=== PATIENT | male | born 1990 | race African-American/Black ===

== ENCOUNTER 2022-06-14 19:10 | Inpatient (IN) | payer MEDICAID, OTHER ==
[2022-06-14] MEDS ORDERED: Fentanyl 100 MCG/2 ML VIAL SLOW IVP SCH (20:00)
[2022-06-14 20:12] VITALS: BMI 17.8
[2022-06-14] MEDS ORDERED: HYDROmorphone 0.5 MG/0.5 ML SYRINGE SLOW IVP SCH (20:30)
[2022-06-14] MEDS ORDERED: Acetaminophen 325 MG TAB PO PRN ×2 (20:32→20:47)
[2022-06-14] MEDS ORDERED: Guaifenesin DM 100-10/5 ML UDCUP PO PRN (20:32)
[2022-06-14] MEDS ORDERED: Calcium Carbonate 500 MG ChewTAB PO PRN (20:32)
[2022-06-14] MEDS ORDERED: oxyCODONE/Acetaminophen 5 mg/325 mg Tablet PO PRN (20:35)
[2022-06-14] MEDS ORDERED: diphenhydrAMINE 50 MG/ML VIAL IVP SCH (20:45)
[2022-06-14] MEDS: Rivaroxaban 15 MG TAB PO SCH (22:01)
[2022-06-14] MEDS: Famotidine 20 MG TAB PO SCH (22:01)
[2022-06-14] MEDS: HYDROmorphone 0.5 MG/0.5 ML SYRINGE SLOW IVP PRN (22:04)
[2022-06-14] MEDS: Lactated Ringer's 1,000 ML IV SCH (22:08)
[2022-06-15] MEDS: oxyCODONE 5 MG TAB PO PRN ×3 (00:26→23:56)
[2022-06-15] MEDS: HYDROmorphone 0.5 MG/0.5 ML SYRINGE SLOW IVP PRN ×6 (01:27→19:39)
[2022-06-15 04:19] LABS: #Basophils 0.1 10x3/uL (0.0-0.2); #Eosinphils 0.1 10x3/uL (0.0-0.5); #Monocytes 2.6 10x3/uL (0.0-1.1); #Neutrophils 13.5 10x3/uL (1.5-8.4); %Basophils 0.5 % (0.0-2.0); %Eosinophils 0.7 % (0.0-6.0); %Lymphocytes 12.3 % (18.0-47.0); Hemoglobin 10.4 g/dL (13.5-17.5); Mean Corpuscular HGB CONC 35.5 g/dL (32.0-36.0); Mean Corpuscular Hemoglobin 31.2 pg (27.0-33.0); Mean Platelet Volume 9.9 fl (7.4-10.4); Platelet Count 254 10x3/uL (150-450); RBC Distribution Width 16.6 % (11.5-14.5); Red Blood Cell (RBC) Count 3.33 10x6/uL (4.32-5.72); White Blood Cell (WBC) Count 18.8 10x3/uL (3.5-10.5)
[2022-06-15] MEDS: Lactated Ringer's 1,000 ML IV SCH ×3 (04:29→19:52)
[2022-06-15 04:37] LABS: ALT (SGPT) 11 U/L (8-55); AST (SGOT) 38 U/L (5-34); Albumin 3.9 g/dL (3.5-5.0); Alkaline Phosphatase 83 U/L (40-110); Anion Gap 14 mmol/L (10-20); BUN (Urea Nitrogen) 9 mg/dL (8.9-20.6); Bilirubin, Total 2.8 mg/dL (0.2-1.2); Calc. Creatinine Clearance 122 mL/min (70-130); Carbon Dioxide 20 mmol/L (22-29); Chloride 103 mmol/L (98-107); Estimated GFR 122; Globulin 3.5 g/dL (2.4-3.5); Glucose 87 mg/dL (70-105); Potassium 4.4 mmol/L (3.5-5.1); Protein, Total 7.4 g/dL (6.0-8.3); Sodium 133 mmol/L (136-145)
[2022-06-15 05:13] LABS: Amphetamine Not Detected (NotDetected); Barbiturates Screen Not Detected (NotDetected); Benzodiazepine Screen Detected (NotDetected); Cocaine Metabolite Screen Not Detected (NotDetected); Methadone Not Detected (NotDetected); Methamphetamine Detected (NotDetected); Opiate Screen Detected (NotDetected); Oxycodone Screen Detected (NotDetected); Phencyclidine (PCP) Not Detected (NotDetected); THC/Cannabinoid Screen Detected (NotDetected); Tricyclic Screen Not Detected (NotDetected)
[2022-06-15] MEDS: Multivitamin W/ Minerals 1 TAB PO SCH (08:00)
[2022-06-15] MEDS: Folic Acid 1 MG TAB PO SCH (08:00)
[2022-06-15] MEDS: Famotidine 20 MG TAB PO SCH ×2 (08:00→19:48)
[2022-06-15] MEDS: Rivaroxaban 15 MG TAB PO SCH ×2 (08:00→19:49)
[2022-06-15] MEDS ORDERED: Enoxaparin Sodium 40 MG/0.4 ML SYRINGE SC SCH (09:00)
[2022-06-16] MEDS ORDERED: HYDROmorphone 0.5 MG/0.5 ML SYRINGE SLOW IVP SCH ×3 (00:30→11:30)
[2022-06-16] MEDS: Ondansetron PF 4 MG/2 ML Vial IVP PRN (01:03)
[2022-06-16] MEDS: diphenhydrAMINE 25 MG CAP PO PRN ×3 (02:50→18:34)
[2022-06-16 04:22] LABS: #Basophils 0.1 10x3/uL (0.0-0.2); #Eosinphils 0.3 10x3/uL (0.0-0.5); #Monocytes 1.7 10x3/uL (0.0-1.1); #Neutrophils 7.7 10x3/uL (1.5-8.4); %Basophils 0.4 % (0.0-2.0); %Eosinophils 2.3 % (0.0-6.0); %Lymphocytes 26.3 % (18.0-47.0); %Monocytes 12.8 % (0.0-10.0); %Neutrophils 57.7 % (40.0-75.0); Hemoglobin 10.6 g/dL (13.5-17.5); Mean Corpuscular HGB CONC 36.6 g/dL (32.0-36.0); Mean Corpuscular Hemoglobin 31.9 pg (27.0-33.0); Mean Corpuscular Volume 87.3 fl (81.2-95.1); Mean Platelet Volume 9.9 fl (7.4-10.4); Platelet Count 272 10x3/uL (150-450); RBC Distribution Width 16.6 % (11.5-14.5); Red Blood Cell (RBC) Count 3.32 10x6/uL (4.32-5.72); White Blood Cell (WBC) Count 13.4 10x3/uL (3.5-10.5)
[2022-06-16] MEDS: Lactated Ringer's 1,000 ML IV SCH ×3 (05:19→22:48)
[2022-06-16] MEDS: oxyCODONE 5 MG TAB PO PRN ×3 (07:47→23:26)
[2022-06-16] MEDS: Rivaroxaban 15 MG TAB PO SCH ×2 (08:12→19:58)
[2022-06-16] MEDS: Folic Acid 1 MG TAB PO SCH (08:12)
[2022-06-16] MEDS: Multivitamin W/ Minerals 1 TAB PO SCH (08:12)
[2022-06-16] MEDS: Famotidine 20 MG TAB PO SCH ×2 (08:12→19:58)
[2022-06-16] MEDS: HYDROmorphone 2 MG TAB PO PRN ×3 (10:25→19:57)
[2022-06-17] MEDS: HYDROmorphone 2 MG TAB PO PRN ×2 (01:44→08:32)
[2022-06-17] MEDS: diphenhydrAMINE 25 MG CAP PO PRN (01:44)
[2022-06-17] MEDS: oxyCODONE 5 MG TAB PO PRN ×2 (04:56→11:10)
[2022-06-17 07:42] LABS: #Basophils 0.1 10x3/uL (0.0-0.2); #Eosinphils 0.3 10x3/uL (0.0-0.5); #Neutrophils 4.9 10x3/uL (1.5-8.4); %Basophils 0.5 % (0.0-2.0); %Eosinophils 3.5 % (0.0-6.0); %Lymphocytes 34.6 % (18.0-47.0); %Monocytes 10.7 % (0.0-10.0); %Neutrophils 50.3 % (40.0-75.0); Hemoglobin 9.2 g/dL (13.5-17.5); Mean Corpuscular HGB CONC 36.2 g/dL (32.0-36.0); Mean Corpuscular Hemoglobin 31.7 pg (27.0-33.0); Mean Corpuscular Volume 87.6 fl (81.2-95.1); Mean Platelet Volume 9.6 fl (7.4-10.4); Platelet Count 231 10x3/uL (150-450); RBC Distribution Width 16.6 % (11.5-14.5); White Blood Cell (WBC) Count 9.7 10x3/uL (3.5-10.5)
[2022-06-17] MEDS: Folic Acid 1 MG TAB PO SCH (08:31)
[2022-06-17] MEDS: Famotidine 20 MG TAB PO SCH ×2 (08:32→23:11)
[2022-06-17] MEDS: Multivitamin W/ Minerals 1 TAB PO SCH (08:33)
[2022-06-17] MEDS: Rivaroxaban 15 MG TAB PO SCH ×2 (08:33→23:11)
[2022-06-17] MEDS ORDERED: HYDROmorphone 0.5 MG/0.5 ML SYRINGE SLOW IVP SCH ×2 (11:15→13:00)
[2022-06-17] MEDS: Ondansetron PF 4 MG/2 ML Vial IVP PRN (13:29)
[2022-06-17] MEDS ORDERED: HYDROmorphone 10 mg/100 ml CADD IVPB PRN (14:30)
[2022-06-17] MEDS ORDERED: diphenhydrAMINE 25 MG CAP PO PRN (14:30)
[2022-06-17] MEDS ORDERED: Ondansetron PF 4 MG/2 ML Vial IVP PRN (14:30)
[2022-06-17] MEDS ORDERED: Naloxone HCl 0.4 mg/ml Vial IV PRN (14:30)
[2022-06-17] MEDS ORDERED: Communication Order-Pharmacy FS SCH (14:30)
[2022-06-17] MEDS ORDERED: Promethazine HCl 25 MG/ML VIAL IM PRN (14:30)
[2022-06-17] MEDS ORDERED: diphenhydrAMINE 50 MG/ML VIAL IM PRN (14:30)
[2022-06-17] MEDS: HYDROmorphone/PF 10 MG in Sodium Chloride 0.9% 49 ML IVPB PRN (17:32)
[2022-06-18] MEDS: diphenhydrAMINE 25 MG CAP PO PRN ×2 (00:28→20:41)
[2022-06-18 05:42] LABS: #Basophils 0.1 10x3/uL (0.0-0.2); #Eosinphils 0.4 10x3/uL (0.0-0.5); #Neutrophils 5.3 10x3/uL (1.5-8.4); %Basophils 0.6 % (0.0-2.0); %Lymphocytes 36.5 % (18.0-47.0); %Monocytes 9.5 % (0.0-10.0); %Neutrophils 48.9 % (40.0-75.0); Hemoglobin 9.6 g/dL (13.5-17.5); Mean Corpuscular HGB CONC 35.3 g/dL (32.0-36.0); Mean Corpuscular Hemoglobin 31.2 pg (27.0-33.0); Mean Corpuscular Volume 88.3 fl (81.2-95.1); Mean Platelet Volume 10.6 fl (7.4-10.4); Platelet Count 260 10x3/uL (150-450); RBC Distribution Width 16.9 % (11.5-14.5); Red Blood Cell (RBC) Count 3.08 10x6/uL (4.32-5.72); White Blood Cell (WBC) Count 10.8 10x3/uL (3.5-10.5)
[2022-06-18] MEDS: Famotidine 20 MG TAB PO SCH ×2 (08:57→20:36)
[2022-06-18] MEDS: Multivitamin W/ Minerals 1 TAB PO SCH (08:57)
[2022-06-18] MEDS: Rivaroxaban 15 MG TAB PO SCH ×2 (08:57→20:36)
[2022-06-18] MEDS: Folic Acid 1 MG TAB PO SCH (08:57)
[2022-06-18] MEDS: HYDROmorphone/PF 10 MG in Sodium Chloride 0.9% 49 ML IVPB PRN (17:35)
[2022-06-18] MEDS ORDERED: Diazepam 5 MG TAB PO SCH (23:45)
[2022-06-19 04:37] LABS: Hemoglobin 10.1 g/dL (13.5-17.5); Mean Corpuscular HGB CONC 36.7 g/dL (32.0-36.0); Platelet Count 242 10x3/uL (150-450); RBC Distribution Width 17.1 % (11.5-14.5); Red Blood Cell (RBC) Count 3.16 10x6/uL (4.32-5.72); White Blood Cell (WBC) Count 11.3 10x3/uL (3.5-10.5)
[2022-06-19 05:22] LABS: MDiff Complete? YES
[2022-06-19 05:54] LABS: Eosinophils 10 % (0-10); Lymphocytes 41 % (21-51); Monocytes 3 % (0-10); Neutrophil 46 % (42-75); Nucleated RBC 1 % (0)
[2022-06-19 05:57] LABS: Platelet Morphology Comment Appears Adequate; Sickle Cells SLIGHT = 1-5 cells (100X) (None Seen); Target Cells SLIGHT = 2-5 cells (100X) (0-1/hpf)
[2022-06-19] MEDS: Famotidine 20 MG TAB PO SCH ×2 (08:34→21:31)
[2022-06-19] MEDS: Rivaroxaban 15 MG TAB PO SCH ×2 (08:34→21:32)
[2022-06-19] MEDS: Multivitamin W/ Minerals 1 TAB PO SCH (08:34)
[2022-06-19] MEDS: Folic Acid 1 MG TAB PO SCH (08:34)
[2022-06-19] MEDS: HYDROmorphone/PF 10 MG in Sodium Chloride 0.9% 49 ML IVPB PRN (08:55)
[2022-06-19] MEDS: Sodium Chloride 0.9% 1,000 ML IV SCH ×2 (11:53→18:19)
[2022-06-19] MEDS: Diazepam 5 MG TAB PO SCH (23:37)
[2022-06-20] MEDS: Sodium Chloride 0.9% 1,000 ML IV SCH ×4 (00:30→22:40)
[2022-06-20] MEDS: HYDROmorphone/PF 10 MG in Sodium Chloride 0.9% 49 ML IVPB PRN ×2 (02:35→21:58)
[2022-06-20] MEDS: diphenhydrAMINE 50 MG/ML VIAL IVP PRN (04:44)
[2022-06-20 05:55] LABS: Hemoglobin 8.9 g/dL (13.5-17.5); Mean Corpuscular Hemoglobin 31.3 pg (27.0-33.0); Mean Platelet Volume 9.5 fl (7.4-10.4); Platelet Count 230 10x3/uL (150-450); RBC Distribution Width 17.8 % (11.5-14.5); Red Blood Cell (RBC) Count 2.84 10x6/uL (4.32-5.72); White Blood Cell (WBC) Count 11.3 10x3/uL (3.5-10.5)
[2022-06-20 06:05] LABS: Anion Gap 14 mmol/L (10-20); BUN (Urea Nitrogen) 12 mg/dL (8.9-20.6); Calc. Creatinine Clearance 90 mL/min (70-130); Calcium 9.3 mg/dL (7.8-10.44); Carbon Dioxide 27 mmol/L (22-29); Chloride 106 mmol/L (98-107); Estimated GFR 101; Glucose 103 mg/dL (70-105); Magnesium 1.7 mg/dL (1.6-2.6); Potassium 4.9 mmol/L (3.5-5.1); Sodium 142 mmol/L (136-145)
[2022-06-20 06:34] LABS: MDiff Complete? YES
[2022-06-20 06:43] LABS: Band 1 % (5-11); Eosinophils 3 % (0-10); Lymphocytes 47 % (21-51); Monocytes 5 % (0-10); Neutrophil 44 % (42-75)
[2022-06-20 06:48] LABS: Sickle Cells MODERATE= 6-15 cells (100X) (None Seen); Target Cells SLIGHT = 2-5 cells (100X) (0-1/hpf)
[2022-06-20 06:50] LABS: Platelet Morphology Comment Appears Adequate
[2022-06-20] MEDS: Rivaroxaban 15 MG TAB PO SCH ×2 (08:38→21:17)
[2022-06-20] MEDS: Multivitamin W/ Minerals 1 TAB PO SCH (08:39)
[2022-06-20] MEDS: Folic Acid 1 MG TAB PO SCH (08:39)
[2022-06-20] MEDS: Famotidine 20 MG TAB PO SCH ×2 (08:39→21:17)
[2022-06-20] MEDS: Ondansetron PF 4 MG/2 ML Vial IVP PRN (13:59)
[2022-06-20] MEDS ORDERED: Bisacodyl 5 MG TAB PO PRN (14:53)
[2022-06-20] MEDS ORDERED: Polyethylene Glycol 3350 17 GM Packet PO PRN (14:53)
[2022-06-20 16:13] LABS: Hemoglobin S Reflexed % (0.0)
[2022-06-20] MEDS ORDERED: Metoclopramide 10 MG/10 ML UDCUP PO SCH (17:00)
[2022-06-20] MEDS: Diazepam 5 MG TAB PO SCH (23:46)
[2022-06-21 04:36] LABS: ALT (SGPT) 14 U/L (8-55); AST (SGOT) 45 U/L (5-34); Albumin 3.8 g/dL (3.5-5.0); Alkaline Phosphatase 70 U/L (40-110); Anion Gap 11 mmol/L (10-20); BUN (Urea Nitrogen) 11 mg/dL (8.9-20.6); Bilirubin, Total 2.2 mg/dL (0.2-1.2); Calc. Creatinine Clearance 102 mL/min (70-130); Carbon Dioxide 26 mmol/L (22-29); Chloride 105 mmol/L (98-107); Estimated GFR 116; Globulin 3.5 g/dL (2.4-3.5); Glucose 95 mg/dL (70-105); Potassium 4.5 mmol/L (3.5-5.1); Protein, Total 7.3 g/dL (6.0-8.3); Sodium 137 mmol/L (136-145)
[2022-06-21] MEDS: Sodium Chloride 0.9% 1,000 ML IV SCH ×2 (05:00→12:34)
[2022-06-21 05:03] LABS: #Basophils 0.1 10x3/uL (0.0-0.2); #Eosinphils 0.5 10x3/uL (0.0-0.5); #Monocytes 1.1 10x3/uL (0.0-1.1); #Neutrophils 7.3 10x3/uL (1.5-8.4); %Basophils 0.5 % (0.0-2.0); %Eosinophils 3.5 % (0.0-6.0); %Lymphocytes 29.7 % (18.0-47.0); %Monocytes 8.4 % (0.0-10.0); %Neutrophils 56.5 % (40.0-75.0); Hemoglobin 7.7 g/dL (13.5-17.5); Mean Corpuscular HGB CONC 36.8 g/dL (32.0-36.0); Mean Corpuscular Hemoglobin 31.4 pg (27.0-33.0); Mean Corpuscular Volume 85.3 fl (81.2-95.1); Mean Platelet Volume 10.1 fl (7.4-10.4); Platelet Count 207 10x3/uL (150-450); RBC Distribution Width 18.5 % (11.5-14.5); Red Blood Cell (RBC) Count 2.45 10x6/uL (4.32-5.72); White Blood Cell (WBC) Count 12.9 10x3/uL (3.5-10.5)
[2022-06-21 05:08] LABS: Platelet Morphology Comment Appears Adequate; Polychromasia SLIGHT = 2-3 cells (100X) (0-2/hpf); Sickle Cells MODERATE= 6-15 cells (100X) (None Seen); Target Cells SLIGHT = 2-5 cells (100X) (0-1/hpf)
[2022-06-21] MEDS: diphenhydrAMINE 50 MG/ML VIAL IVP PRN (06:47)
[2022-06-21] MEDS: Rivaroxaban 15 MG TAB PO SCH ×2 (08:11→22:09)
[2022-06-21] MEDS: Folic Acid 1 MG TAB PO SCH (08:11)
[2022-06-21] MEDS: Famotidine 20 MG TAB PO SCH ×2 (08:11→22:09)
[2022-06-21] MEDS: Multivitamin W/ Minerals 1 TAB PO SCH (08:11)
[2022-06-21] MEDS: HYDROmorphone/PF 10 MG in Sodium Chloride 0.9% 49 ML IVPB PRN (19:42)
[2022-06-21] MEDS: Diazepam 5 MG TAB PO SCH (22:09)
[2022-06-22 04:35] LABS: ALT (SGPT) 16 U/L (8-55); AST (SGOT) 55 U/L (5-34); Albumin 3.8 g/dL (3.5-5.0); Alkaline Phosphatase 77 U/L (40-110); Anion Gap 14 mmol/L (10-20); BUN (Urea Nitrogen) 10 mg/dL (8.9-20.6); Bilirubin, Total 3.4 mg/dL (0.2-1.2); Calc. Creatinine Clearance 109 mL/min (70-130); Carbon Dioxide 21 mmol/L (22-29); Chloride 107 mmol/L (98-107); Estimated GFR 118; Globulin 3.3 g/dL (2.4-3.5); Glucose 93 mg/dL (70-105); Potassium 4.5 mmol/L (3.5-5.1); Protein, Total 7.1 g/dL (6.0-8.3); Sodium 137 mmol/L (136-145)
[2022-06-22 04:50] LABS: #Basophils 0.1 10x3/uL (0.0-0.2); #Eosinphils 0.4 10x3/uL (0.0-0.5); #Monocytes 1.5 10x3/uL (0.0-1.1); #Neutrophils 7.4 10x3/uL (1.5-8.4); %Basophils 0.6 % (0.0-2.0); %Eosinophils 2.8 % (0.0-6.0); %Lymphocytes 27.6 % (18.0-47.0); %Monocytes 11.6 % (0.0-10.0); %Neutrophils 56.9 % (40.0-75.0); Hemoglobin 7.3 g/dL (13.5-17.5); Mean Corpuscular HGB CONC 36.3 g/dL (32.0-36.0); Mean Corpuscular Hemoglobin 30.8 pg (27.0-33.0); Mean Corpuscular Volume 84.8 fl (81.2-95.1); Platelet Count 198 10x3/uL (150-450); RBC Distribution Width 18.7 % (11.5-14.5); Red Blood Cell (RBC) Count 2.37 10x6/uL (4.32-5.72); White Blood Cell (WBC) Count 13.1 10x3/uL (3.5-10.5)
[2022-06-22] MEDS: Rivaroxaban 15 MG TAB PO SCH ×2 (08:51→21:33)
[2022-06-22] MEDS: Folic Acid 1 MG TAB PO SCH (08:51)
[2022-06-22] MEDS: Multivitamin W/ Minerals 1 TAB PO SCH (08:51)
[2022-06-22] MEDS: Famotidine 20 MG TAB PO SCH ×2 (08:51→21:32)
[2022-06-22] MEDS: HYDROmorphone/PF 10 MG in Sodium Chloride 0.9% 49 ML IVPB PRN (17:16)
[2022-06-22] MEDS ORDERED: cefTRIAXone\\ROCEPHIN 1 GM in Sodium Chloride 0.9% 100 ML IVPB SCH (18:00)
[2022-06-22 20:53] LABS: HIV (1/2) Antibody/Antigen Non-Reactive (NonReactive); HIV 1/2 INDEX 0.07 S/CO (<1.00)
[2022-06-22 20:59] LABS: Phosphorus 3.3 mg/dL (2.3-4.7)
[2022-06-22 21:01] LABS: CRP (Inflammatory) 3.78 mg/dL (= or < 0.5); Magnesium 1.6 mg/dL (1.6-2.6)
[2022-06-22] MEDS: Diazepam 5 MG TAB PO SCH (21:32)
[2022-06-23 06:28] LABS: #Basophils 0.1 10x3/uL (0.0-0.2); #Eosinphils 0.6 10x3/uL (0.0-0.5); #Monocytes 2.2 10x3/uL (0.0-1.1); #Neutrophils 8.1 10x3/uL (1.5-8.4); %Basophils 0.6 % (0.0-2.0); %Eosinophils 4.1 % (0.0-6.0); %Lymphocytes 25.7 % (18.0-47.0); %Monocytes 14.8 % (0.0-10.0); %Neutrophils 54.1 % (40.0-75.0); Hemoglobin 7.7 g/dL (13.5-17.5); Mean Corpuscular HGB CONC 36.8 g/dL (32.0-36.0); Mean Corpuscular Volume 84.3 fl (81.2-95.1); Mean Platelet Volume 10.1 fl (7.4-10.4); Platelet Count 199 10x3/uL (150-450); RBC Distribution Width 19.2 % (11.5-14.5); Red Blood Cell (RBC) Count 2.48 10x6/uL (4.32-5.72)
[2022-06-23 06:36] LABS: ALT (SGPT) 18 U/L (8-55); Albumin 3.6 g/dL (3.5-5.0); Alkaline Phosphatase 72 U/L (40-110); Anion Gap 18 mmol/L (10-20); BUN (Urea Nitrogen) 10 mg/dL (8.9-20.6); Bilirubin, Total 3.3 mg/dL (0.2-1.2); Calc. Creatinine Clearance 109 mL/min (70-130); Calcium 8.8 mg/dL (7.8-10.44); Carbon Dioxide 18 mmol/L (22-29); Chloride 109 mmol/L (98-107); Estimated GFR 118; Globulin 3.5 g/dL (2.4-3.5); Glucose 100 mg/dL (70-105); Potassium 4.8 mmol/L (3.5-5.1); Protein, Total 7.1 g/dL (6.0-8.3); Sodium 140 mmol/L (136-145)
[2022-06-23 06:38] LABS: AST (SGOT) 55 U/L (5-34)
[2022-06-23] MEDS ORDERED: Carvedilol 3.125 MG TAB PO SCH (08:00)
[2022-06-23] MEDS: Ondansetron PF 4 MG/2 ML Vial IVP PRN (08:34)
[2022-06-23] MEDS ORDERED: Piperacillin/Tazobactam 3.375 GM in Sodium Chloride 0.9% 100 ML IVPB SCH ×3 (09:00→13:00)
[2022-06-23] MEDS: Multivitamin W/ Minerals 1 TAB PO SCH (09:52)
[2022-06-23] MEDS: Famotidine 20 MG TAB PO SCH ×2 (09:52→21:04)
[2022-06-23] MEDS: Rivaroxaban 15 MG TAB PO SCH ×2 (09:52→21:04)
[2022-06-23] MEDS: Folic Acid 1 MG TAB PO SCH (09:52)
[2022-06-23] MEDS ORDERED: Iopamidol 300 61% 100 ML VIAL FS ONE (09:54)
[2022-06-23] MEDS: Promethazine HCl 12.5 MG in Sodium Chloride 0.9% 50 ML IVPB PRN (11:47)
[2022-06-23] MEDS ORDERED: EPINEPHrine 1 MG/ML AMP IM PRN (13:01)
[2022-06-23 14:12] LABS: INR-International Normal Ratio 2.2; PTT 47.3 sec (22.0-33.0); Prothrombin Time 22.4 sec (9.5-12.1)
[2022-06-23] MEDS: Cefepime 2 GM in Sodium Chloride 0.9% 100 ML IVPB SCH ×2 (14:39→22:46)
[2022-06-23] MEDS: HYDROmorphone/PF 10 MG in Sodium Chloride 0.9% 49 ML IVPB PRN (18:41)
[2022-06-23] MEDS: Carvedilol 6.25 MG TAB PO SCH (19:32)
[2022-06-23] MEDS: Senokot S 8.6-50 MG TAB PO PRN (22:47)
[2022-06-23] MEDS: Diazepam 5 MG TAB PO SCH (23:43)
[2022-06-24 04:19] LABS: ALT (SGPT) 14 U/L (8-55); AST (SGOT) 40 U/L (5-34); Alkaline Phosphatase 84 U/L (40-110); Anion Gap 15 mmol/L (10-20); BUN (Urea Nitrogen) 9 mg/dL (8.9-20.6); Bilirubin, Total 3.7 mg/dL (0.2-1.2); Calc. Creatinine Clearance 96 mL/min (70-130); Calcium 9.1 mg/dL (7.8-10.44); Carbon Dioxide 23 mmol/L (22-29); Chloride 105 mmol/L (98-107); Estimated GFR 109; Globulin 3.2 g/dL (2.4-3.5); Glucose 112 mg/dL (70-105); Potassium 4.2 mmol/L (3.5-5.1); Protein, Total 7.2 g/dL (6.0-8.3); Sodium 139 mmol/L (136-145)
[2022-06-24 04:21] LABS: #Basophils 0.1 10x3/uL (0.0-0.2); #Eosinphils 0.7 10x3/uL (0.0-0.5); #Monocytes 1.8 10x3/uL (0.0-1.1); #Neutrophils 7.6 10x3/uL (1.5-8.4); %Basophils 0.4 % (0.0-2.0); %Eosinophils 5.2 % (0.0-6.0); %Lymphocytes 23.2 % (18.0-47.0); %Monocytes 13.3 % (0.0-10.0); %Neutrophils 57.3 % (40.0-75.0); Hemoglobin 8.3 g/dL (13.5-17.5); Mean Corpuscular HGB CONC 36.9 g/dL (32.0-36.0); Mean Corpuscular Hemoglobin 30.9 pg (27.0-33.0); Mean Corpuscular Volume 83.6 fl (81.2-95.1); Mean Platelet Volume 9.8 fl (7.4-10.4); Platelet Count 227 10x3/uL (150-450); RBC Distribution Width 19.4 % (11.5-14.5); Red Blood Cell (RBC) Count 2.69 10x6/uL (4.32-5.72); White Blood Cell (WBC) Count 13.3 10x3/uL (3.5-10.5)
[2022-06-24] MEDS: Cefepime 2 GM in Sodium Chloride 0.9% 100 ML IVPB SCH ×3 (05:37→21:09)
[2022-06-24] MEDS: Folic Acid 1 MG TAB PO SCH (10:09)
[2022-06-24] MEDS: Rivaroxaban 15 MG TAB PO SCH ×2 (10:09→21:08)
[2022-06-24] MEDS: Famotidine 20 MG TAB PO SCH ×2 (10:09→21:08)
[2022-06-24] MEDS: Multivitamin W/ Minerals 1 TAB PO SCH (10:09)
[2022-06-24] MEDS: Carvedilol 6.25 MG TAB PO SCH (10:10)
[2022-06-24 14:27] LABS: Bilirubin Neg (Negative); Blood, Urine 10 (Negative); Glucose, Urine (Dipstick) Normal (Negative); Ketone, Urine Negative (Negative); Leukocyte Negative (Negative); Nitrite Negative (Negative); Protein, Urine (Dipstick) Negative (Neg-Trace)
[2022-06-24 14:50] LABS: Clarity Clear (Clear)
[2022-06-24 14:52] LABS: Bacteria/HPF 1+ HPF (None Seen); Squamous Epithelial 0-3 HPF (0-3); WBC/HPF 0-3 HPF (0-3)
[2022-06-24 14:54] LABS: Mucous/LPF 1+ LPF (<2+)
[2022-06-24] MEDS: HYDROmorphone/PF 10 MG in Sodium Chloride 0.9% 49 ML IVPB PRN (16:44)
[2022-06-24] MEDS: Carvedilol 12.5 MG TAB PO SCH (16:49)
[2022-06-24] MEDS: Diazepam 5 MG TAB PO SCH (23:20)
[2022-06-25] MEDS: Promethazine HCl 12.5 MG in Sodium Chloride 0.9% 50 ML IVPB PRN ×3 (00:02→21:40)
[2022-06-25] MEDS: Cefepime 2 GM in Sodium Chloride 0.9% 100 ML IVPB SCH ×3 (05:40→23:58)
[2022-06-25 05:53] LABS: ALT (SGPT) 12 U/L (8-55); Albumin 3.1 g/dL (3.5-5.0); Alkaline Phosphatase 71 U/L (40-110); Anion Gap 13 mmol/L (10-20); BUN (Urea Nitrogen) 7 mg/dL (8.9-20.6); Bilirubin, Total 2.9 mg/dL (0.2-1.2); Calc. Creatinine Clearance 117 mL/min (70-130); Calcium 8.7 mg/dL (7.8-10.44); Carbon Dioxide 19 mmol/L (22-29); Chloride 111 mmol/L (98-107); Estimated GFR 120; Globulin 3.3 g/dL (2.4-3.5); Glucose 96 mg/dL (70-105); Protein, Total 6.4 g/dL (6.0-8.3); Sodium 139 mmol/L (136-145)
[2022-06-25 05:54] LABS: AST (SGOT) 42 U/L (5-34)
[2022-06-25 09:22] LABS: #Eosinphils 0.8 10x3/uL (0.0-0.5); #Monocytes 1.6 10x3/uL (0.0-1.1); #Neutrophils 7.4 10x3/uL (1.5-8.4); %Basophils 0.3 % (0.0-2.0); %Eosinophils 6.4 % (0.0-6.0); %Lymphocytes 19.5 % (18.0-47.0); %Monocytes 13.2 % (0.0-10.0); Hemoglobin 7.6 g/dL (13.5-17.5); Mean Corpuscular HGB CONC 37.1 g/dL (32.0-36.0); Mean Corpuscular Hemoglobin 31.4 pg (27.0-33.0); Mean Corpuscular Volume 84.7 fl (81.2-95.1); Mean Platelet Volume 10.2 fl (7.4-10.4); Platelet Count 218 10x3/uL (150-450); RBC Distribution Width 21.2 % (11.5-14.5); Red Blood Cell (RBC) Count 2.42 10x6/uL (4.32-5.72); White Blood Cell (WBC) Count 12.4 10x3/uL (3.5-10.5)
[2022-06-25] MEDS: Multivitamin W/ Minerals 1 TAB PO SCH (09:28)
[2022-06-25] MEDS: Rivaroxaban 15 MG TAB PO SCH ×2 (09:28→21:44)
[2022-06-25] MEDS: Carvedilol 12.5 MG TAB PO SCH (09:28)
[2022-06-25] MEDS: Famotidine 20 MG TAB PO SCH ×2 (09:28→21:44)
[2022-06-25] MEDS: Folic Acid 1 MG TAB PO SCH (09:28)
[2022-06-25] MEDS ORDERED: Carvedilol 12.5 MG TAB PO SCH (10:00)
[2022-06-25] MEDS: Senokot S 8.6-50 MG TAB PO PRN (11:38)
[2022-06-25] MEDS: Lactated Ringer's 1,000 ML IV SCH (13:18)
[2022-06-25] MEDS: Carvedilol 25 MG TAB PO SCH (17:54)
[2022-06-26] MEDS: Diazepam 5 MG TAB PO SCH ×2 (00:03→23:14)
[2022-06-26] MEDS: HYDROmorphone/PF 10 MG in Sodium Chloride 0.9% 49 ML IVPB PRN (00:41)
[2022-06-26] MEDS: Lactated Ringer's 1,000 ML IV SCH (01:00)
[2022-06-26] MEDS: Promethazine HCl 12.5 MG in Sodium Chloride 0.9% 50 ML IVPB PRN ×4 (03:56→21:42)
[2022-06-26 05:41] LABS: ALT (SGPT) 15 U/L (8-55); AST (SGOT) 36 U/L (5-34); Albumin 3.5 g/dL (3.5-5.0); Alkaline Phosphatase 90 U/L (40-110); Anion Gap 16 mmol/L (10-20); BUN (Urea Nitrogen) 8 mg/dL (8.9-20.6); Bilirubin, Total 2.3 mg/dL (0.2-1.2); Calc. Creatinine Clearance 114 mL/min (70-130); Calcium 9.1 mg/dL (7.8-10.44); Carbon Dioxide 21 mmol/L (22-29); Chloride 111 mmol/L (98-107); Estimated GFR 120; Globulin 3.4 g/dL (2.4-3.5); Glucose 110 mg/dL (70-105); Potassium 4.5 mmol/L (3.5-5.1); Protein, Total 6.9 g/dL (6.0-8.3); Sodium 143 mmol/L (136-145)
[2022-06-26] MEDS: Cefepime 2 GM in Sodium Chloride 0.9% 100 ML IVPB SCH ×3 (06:00→21:34)
[2022-06-26 07:34] LABS: Hemoglobin 7.6 g/dL (13.5-17.5); Mean Corpuscular HGB CONC 38.4 g/dL (32.0-36.0); Mean Corpuscular Hemoglobin 31.5 pg (27.0-33.0); Mean Corpuscular Volume 82.2 fl (81.2-95.1); Mean Platelet Volume 10.4 fl (7.4-10.4); Platelet Count 264 10x3/uL (150-450); Red Blood Cell (RBC) Count 2.41 10x6/uL (4.32-5.72); White Blood Cell (WBC) Count 12.4 10x3/uL (3.5-10.5)
[2022-06-26 07:35] LABS: #Basophils 0.1 10x3/uL (0.0-0.2); #Eosinphils 0.8 10x3/uL (0.0-0.5); #Monocytes 1.4 10x3/uL (0.0-1.1); %Basophils 0.7 % (0.0-2.0); %Eosinophils 6.8 % (0.0-6.0); %Lymphocytes 29.7 % (18.0-47.0); %Monocytes 11.5 % (0.0-10.0); %Neutrophils 48.7 % (40.0-75.0)
[2022-06-26 08:18] LABS: Anisocytosis MODERATE=16-30 cells (100X) (0-5/hpf); Macrocytosis SLIGHT = 6-15 cells (100X) (0-5/hpf); Microcytosis SLIGHT = 6-15 cells (100X) (0-5/hpf); Poikilocytosis MODERATE=16-30 cells (100X) (0-5/hpf)
[2022-06-26 08:19] LABS: Schistocytes SLIGHT = 2-5 cells (100X) (0-1/hpf); Sickle Cells SLIGHT = 1-5 cells (100X) (None Seen); Target Cells SLIGHT = 2-5 cells (100X) (0-1/hpf)
[2022-06-26 08:20] LABS: Polychromasia SLIGHT = 2-3 cells (100X) (0-2/hpf)
[2022-06-26 08:21] LABS: Platelet Morphology Comment Appears Adequate
[2022-06-26] MEDS: Ivabradine 5 MG TAB PO SCH ×2 (09:54→20:26)
[2022-06-26] MEDS: Folic Acid 1 MG TAB PO SCH (09:54)
[2022-06-26] MEDS: Multivitamin W/ Minerals 1 TAB PO SCH (09:54)
[2022-06-26] MEDS: Famotidine 20 MG TAB PO SCH ×2 (09:55→20:26)
[2022-06-26] MEDS: Carvedilol 25 MG TAB PO SCH ×2 (09:55→17:37)
[2022-06-26] MEDS: Rivaroxaban 15 MG TAB PO SCH ×2 (09:55→20:26)
[2022-06-26 11:08] LABS: Free T4 (Free Thyroxine) 0.81 ng/dL (0.70-1.48)
[2022-06-27] MEDS: Promethazine HCl 12.5 MG in Sodium Chloride 0.9% 50 ML IVPB PRN ×3 (04:24→16:49)
[2022-06-27 04:28] LABS: ALT (SGPT) 16 U/L (8-55); AST (SGOT) 41 U/L (5-34); Albumin 3.4 g/dL (3.5-5.0); Alkaline Phosphatase 81 U/L (40-110); Anion Gap 14 mmol/L (10-20); BUN (Urea Nitrogen) 9 mg/dL (8.9-20.6); Bilirubin, Total 2.5 mg/dL (0.2-1.2); Calc. Creatinine Clearance 102 mL/min (70-130); Calcium 9.1 mg/dL (7.8-10.44); Carbon Dioxide 21 mmol/L (22-29); Chloride 110 mmol/L (98-107); Estimated GFR 116; Globulin 3.4 g/dL (2.4-3.5); Glucose 103 mg/dL (70-105); Potassium 4.3 mmol/L (3.5-5.1); Protein, Total 6.8 g/dL (6.0-8.3); Sodium 141 mmol/L (136-145)
[2022-06-27 04:42] LABS: #Basophils 0.1 10x3/uL (0.0-0.2); #Eosinphils 0.8 10x3/uL (0.0-0.5); #Monocytes 1.8 10x3/uL (0.0-1.1); #Neutrophils 7.8 10x3/uL (1.5-8.4); %Basophils 0.4 % (0.0-2.0); %Eosinophils 5.7 % (0.0-6.0); %Lymphocytes 22.4 % (18.0-47.0); %Monocytes 13.2 % (0.0-10.0); %Neutrophils 57.9 % (40.0-75.0); Hemoglobin 8.4 g/dL (13.5-17.5); Mean Corpuscular HGB CONC 36.2 g/dL (32.0-36.0); Mean Corpuscular Volume 85.6 fl (81.2-95.1); Mean Platelet Volume 9.8 fl (7.4-10.4); Platelet Count 250 10x3/uL (150-450); RBC Distribution Width 20.1 % (11.5-14.5); Red Blood Cell (RBC) Count 2.71 10x6/uL (4.32-5.72); White Blood Cell (WBC) Count 13.5 10x3/uL (3.5-10.5)
[2022-06-27] MEDS: Cefepime 2 GM in Sodium Chloride 0.9% 100 ML IVPB SCH ×3 (05:42→23:36)
[2022-06-27] MEDS: HYDROmorphone/PF 10 MG in Sodium Chloride 0.9% 49 ML IVPB PRN (07:28)
[2022-06-27] MEDS: Rivaroxaban 15 MG TAB PO SCH ×2 (10:03→21:22)
[2022-06-27] MEDS: Famotidine 20 MG TAB PO SCH ×2 (10:03→21:22)
[2022-06-27] MEDS: Carvedilol 25 MG TAB PO SCH ×2 (10:04→23:35)
[2022-06-27] MEDS: Folic Acid 1 MG TAB PO SCH (10:04)
[2022-06-27] MEDS: Multivitamin W/ Minerals 1 TAB PO SCH (10:04)
[2022-06-27] MEDS ORDERED: Lactated Ringer's 1,000 ML IV SCH (15:45)
[2022-06-27 16:15] LABS: Hemoglobin S Reflexed % (0.0)
[2022-06-27] MEDS: Ivabradine 5 MG TAB PO SCH ×2 (18:47→21:22)
[2022-06-27] MEDS: Diazepam 5 MG TAB PO SCH (23:36)
[2022-06-28] MEDS: Promethazine HCl 12.5 MG in Sodium Chloride 0.9% 50 ML IVPB PRN ×3 (00:56→21:57)
[2022-06-28] MEDS: Cefepime 2 GM in Sodium Chloride 0.9% 100 ML IVPB SCH (05:42)
[2022-06-28] MEDS: Ivabradine 5 MG TAB PO SCH ×2 (09:24→20:38)
[2022-06-28] MEDS: Multivitamin W/ Minerals 1 TAB PO SCH (09:24)
[2022-06-28] MEDS: Carvedilol 25 MG TAB PO SCH ×2 (09:24→19:39)
[2022-06-28] MEDS: Famotidine 20 MG TAB PO SCH ×2 (09:24→20:30)
[2022-06-28] MEDS: Rivaroxaban 15 MG TAB PO SCH ×2 (09:24→20:32)
[2022-06-28] MEDS: Folic Acid 1 MG TAB PO SCH (09:24)
[2022-06-28] MEDS ORDERED: Promethazine HCl 25 MG/ML VIAL ONE (11:29)
[2022-06-28] MEDS ORDERED: Acetaminophen 325 MG TAB PO PRN (13:51)
[2022-06-28] MEDS ORDERED: oxyCODONE 5 MG TAB PO PRN (13:57)
[2022-06-28] MEDS: HYDROmorphone 2 MG TAB PO SCH ×2 (15:28→20:30)
[2022-06-28] MEDS ORDERED: Ketorolac Tromethamine 30 MG/ML VIAL IVP SCH (23:45)
[2022-06-28] MEDS: Diazepam 5 MG TAB PO SCH (23:49)
[2022-06-29] MEDS: HYDROmorphone 2 MG TAB PO SCH ×2 (02:24→09:46)
[2022-06-29] MEDS: Promethazine HCl 12.5 MG in Sodium Chloride 0.9% 50 ML IVPB PRN ×2 (04:23→10:00)
[2022-06-29 08:28] VITALS: BP 110/60; TEMP 98.2
[2022-06-29] MEDS ORDERED: Ketorolac Tromethamine 30 MG/ML VIAL IVP SCH (09:15)
[2022-06-29] MEDS: Carvedilol 25 MG TAB PO SCH (09:48)
[2022-06-29] MEDS: Folic Acid 1 MG TAB PO SCH (09:48)
[2022-06-29] MEDS: Famotidine 20 MG TAB PO SCH (09:48)
[2022-06-29] MEDS: Multivitamin W/ Minerals 1 TAB PO SCH (09:48)
[2022-06-29] MEDS: Rivaroxaban 15 MG TAB PO SCH (09:48)
[2022-06-29] MEDS: Ivabradine 5 MG TAB PO SCH (10:04)
== END 2022-06-29 12:30 | disposition home or self-care (01) | DRG 811 ==
LOC: CSHTELE 19:10
PROVIDERS: ADMIT Student in an Organized Health Care Education/Training Program; ATTEND Internal Medicine
PROC: 30233N1 Transfusion of Nonautologous Red Blood Cells into Peripheral Vein, Percutaneous Approach (ICD-10-PCS; principal; 2022-06-23)
DX: D57.01 Hb-SS disease with acute chest syndrome (principal); J18.9 Pneumonia, unspecified organism; R65.10 Systemic inflammatory response syndrome (SIRS) of non-infectious origin without acute organ dysfunction; I82.621 Acute embolism and thrombosis of deep veins of right upper extremity; I50.22 Chronic systolic (congestive) heart failure; I42.0 Dilated cardiomyopathy; I42.8 Other cardiomyopathies; Z20.822 Contact with and (suspected) exposure to COVID-19; F17.210 Nicotine dependence, cigarettes, uncomplicated; F12.10 Cannabis abuse, uncomplicated; F15.10 Other stimulant abuse, uncomplicated; D63.8 Anemia in other chronic diseases classified elsewhere; Z79.01 Long term (current) use of anticoagulants; Z86.718 Personal history of other venous thrombosis and embolism; Z88.5 Allergy status to narcotic agent; Z88.8 Allergy status to other drugs, medicaments and biological substances; Z79.899 Other long term (current) drug therapy
CPT/HCPCS: 36415; 36416; 36430; 71045; 71260; 74177; 80048; 80053; 80306; 81001; 83021; 83605; 83615; 83735; 84100; 84145; 84439; 84443; 84481; 85025; 85046; 85610; 85652; 85730; 86140; 86850; 86900; 86901; 87040; 87086; 87389; 87631; 87811; 93306; 94760; J0692; J1170; J1200; J1885; J1956; J2405; J2543; J2550; J3490; J7050; J7120; P9016; Q9967